=== PATIENT | female | born 1965 | race Caucasian/White ===

== ENCOUNTER 2019-06-23 09:30 | Outpatient (RCR) | payer BC, SELFPAY ==
[2019-06-02 09:26] VITALS: BP 149/87; PULSE 87; RESP 18; TEMP 36.2; BMI 20.5
--- NOTE | 2019-06-02 10:32 | PCM.WC.HP ---
(1) Chronic venous insufficiency Status: Chronic Current Visit: Yes Code(s): I87.2 - Venous insufficiency (chronic) (peripheral) (2) Venous stasis ulcer limited to breakdown of skin with varicose veins Status: Chronic Current Visit: Yes Qualifiers: Venous stasis ulcer site: ankle Laterality: right Qualified Code(s): I83.013 - Varicose veins of right lower extremity with ulcer of ankle; L97.311 - Non-pressure chronic ulcer of right ankle limited to breakdown of skin Code(s): I83.009 - Varicose veins of unspecified lower extremity with ulcer of unspecified site; L97.901 - Non-pressure chronic ulcer of unspecified part of unspecified lower leg limited to breakdown of skin (3) Venous hypertension, chronic, with ulcer Status: Chronic Current Visit: Yes Code(s): I87.319 - Chronic venous hypertension (idiopathic) with ulcer of unspecified lower extremity; L97.909 - Non-pressure chronic ulcer of unspecified part of unspecified lower leg with unspecified severity (4) Leg swelling Status: Chronic Current Visit: Yes Code(s): M79.89 - Other specified soft tissue disorders (5) Bilateral hand swelling Status: Chronic Current Visit: No Code(s): M79.89 - Other specified soft tissue disorders (6) Tobacco abuse Status: Chronic Current Visit: No Code(s): Z72.0 - Tobacco use (7) Tobacco abuse counseling Status: Chronic Current Visit: No Code(s): Z71.6 - Tobacco abuse counseling History of Present Illness Date of Service: 06/02/19 Chief Complaint: Ulceration near the right medial malleolus History of Wound: This is a 53-year-old female who presents with a small ulceration near the right medial malleolus. It occurred spontaneously approximately 3 months ago. Patient has treated it with a variety of topical preparations, including Neosporin ointment, silver cloth, silver gel, and Vaseline. She is seeing little improvement in the ulceration since it developed. She denies a history of thrombophlebitis. She has undergone no prior vein procedures in the past. She claims to sleep on a flat surface at night. She is very active. She indicates that she experiences swelling in her lower extremities and her hands, which is most notable in the mornings. She ambulates liberally, without any symptoms to suggest arterial insufficiency or intermittent claudication. Past Medical History Past Medical History: Chronic Problems Chronic venous insufficiency (Chronic) Venous stasis ulcer limited to breakdown of skin with varicose veins (Chronic) Venous hypertension, chronic, with ulcer (Chronic) Leg swelling (Chronic) Bilateral hand swelling (Chronic) Tobacco abuse (Chronic) Tobacco abuse counseling (Chronic) Past Medical History: The patient experienced an episode of shingles to the left side of her face approximately 1 year ago. There is a question of whether the patient may have Raynaud's disease, though she has not been formally diagnosed with this disease entity. She notices some blue discoloration of her digits and cold weather. The patient denies a history of thrombophlebitis, myocardial infarction, congestive heart failure, cerebrovascular accident, hypertension, diabetes mellitus, cancer, pulmonary disease, renal disease, hyperlipidemia, and thyroid disease. Surgical History: - - Patient has no history of significant surgical procedures. She is a G1, P1 Ab0 Allergies/Adverse Reactions: Allergies No Known Allergies Allergy (Verified 06/02/19 09:46) - Family History Paternal - - The patient's father is 88 years of age with a history of atrial fibrillation and abdominal aortic aneurysm. The patient's mother at the age of 90 from old age Social History: The patient is employed as a realtor. Lives: Spouse/ Significant Other Smoking Status: Current every day smoker - Patient smokes 4 packs of cigarettes per week Tobacco Use: Cigarettes Alcohol: Heavy - The patient drinks approximately 4 beers per day Drugs: None Review of Systems Constitutional: Denies: Chills, Fever, Weight Change Eyes: Denies: Pain, Vision Change HEENT: Denies: Difficulty Hearing, Difficulty Swallowing, Sinus Congestion Cardiovascular: Denies: Chest Pain, Palpitations Respiratory: Denies: Cough, Shortness of Breath Gastrointestinal: Denies: Diarrhea, Nausea, Vomiting Genitourinary: Denies: Dysuria, Hematuria Endocrine: Denies: Heat/ Cold Intolerance, Polydipsia, Polyuria Hematologic/ Lymphatic: Denies: Easy Bruising, Easy Bleeding - Physical Exam Vital Signs Temp Pulse Resp BP 97.1 F L 87 18 149/87 H 06/02/19 09:26 06/02/19 09:26 06/02/19 09:26 06/02/19 09:26 General: Alert, Oriented x3, Cooperative, No apparent distress, Well developed, Well nourished, - - The patient appears to be of relatively normal body habitus and weight HEENT: Atraumatic, PERRLA, EOMI, Normocephalic Oral: Moist Mucosa Neck: Supple, No JVD, Negative Carotid Bruits, Negative Hepatojugular Reflux, No Nodes, No Nuchal Rigidity, Trachea Midline Lungs: Clear to auscultation, Normal air movement, No rhonchi, No wheeze, No rales Cardiovascular: Regular rate, Regular Rhythm, Normal S1, Normal S2, No murmurs Abdomen: Soft, Non Tender, Non-Distended Extremities: No clubbing, No cyanosis, No Calf Tenderness, - - There is mild swelling noted in the fingers of the patient's hands. There is no swelling in the lower extremities. A very small ulceration is noted near the right medial malleolus. Dimensions are documented elsewhere. There is a small amount of bioburden. The ulceration is surrounded by mild erythema, which appears to represent maceration, likely due to recent topical preparations. Scattered reticular veins and small varicosities are noted in the lower extremities. Wound Measurements and Assessment WC - Nurse 1 - General Ulcer Measurement Start: 06/02/19 09:26 Freq: Status: Active Protocol: Activity Type Activity Date Activity User E-Sign Co-Sign Detail Recorded Client Recorded Date Recorded By Document 06/02/19 09:26 [email or web address] [id number] 06/02/19 09:40 SCOTTY 06/02/19 09:26 Wound Center Nurse 1 [Ulcer Assessment] 1-right medial ankle -Combined with other wound No -Current Size (cm) - Length 0.1 -Current Size (cm) - Width 0.1 -Current Size (cm) - Depth 0.1 -Total Square Cm 0.01 -Photo Taken Yes -Epithelialization Large 67-100% -Tunneling No -Undermining/Tunneling No -Circular Undermining No -Classification - Thickness Full Thickness without Exposed Support Structure -Exudate Amt Small -Exudate Type Serosanguineous -Wound Margin Flat & Intact -Granulation Amt Large (67-100%) -Granulation Quality Red -Slough/Fibrin No -Structure Exposed N/A -Texture (Cathryn-wound Skin Appearance) Assessed, Excoriation -Moisture (Cathryn-wound Skin Appearance Assessed,Dry/ ) Scaly -Color (Cathryn-wound Skin Appearance) Assessed -Temperature (Cathryn-wound Skin No Abnormality Appearance) (Pt Warm) -Tenderness on Palpation (Cathryn-wound No Skin Appearance) -Ulcer Cleansing Rinsed/ Irrigated with Saline -Foul Odor after Cleansing No -Anesthetic Used 4% Lidocaine Solution [Edema Assessment] -Lower Limb Edema Present Yes -Right Calf (cm) 35.5 -Right Ankle (cm) 22.6 -Left Calf (cm) 35.2 -Left Ankle (cm) 22.3 WC - Nurse 2 - General Ulcer CM Notes Start: 06/02/19 09:26 Freq: Status: Active Protocol: Activity Type Activity Date Activity User E-Sign Co-Sign Detail Recorded Client Recorded Date Recorded By Document 06/02/19 10:22 DV [id number] 06/02/19 10:25 DV 06/02/19 10:22 Wound Center Nurse 2 [Procedure/Treatment] 1-right medial ankle -Time 10:22 -Correct Patient Yes -Correct Side, Site, Position Yes -Correct Procedure Yes -Procedure Performed Yes -Type of Procedure Debridement -Clinical Debridement Subcutaneous -Post Debridement Size (cm) - Length 0.2 -Post Debridement Size (cm) - Width 0.2 -Post Debridement Size (cm) - Depth 0.1 -Total Square Cm 0.04 -Wound/Ulcer Outcome Not Healed -Ulcer Cleansing Rinsed/ Irrigated with Saline -Foul Odor after Cleansing No -Bioengineered Tissue No -Bleeding Controlled with Pressure -Offloading No -Treatment Response Procedure Tolerated Well [See Physician Procedure note for Specifics] Pain Scale: 0-10 Numeric [Pain] -Is Patient Pain Free? Yes Musculoskeletal: No Muscle Wasting Neurological: Cranial nerves II-XII grossly intact, Neuro grossly intact Psych/Mental Status: Normal Affect, Appropriate, Alert and oriented to time, place, person, mood and affect Debridement Note Post-Debridement Measurements/Treatment WC - Nurse 2 - General Ulcer CM Notes Start: 06/02/19 09:26 Freq: Status: Active Protocol: Activity Type Activity Date Activity User E-Sign Co-Sign Detail Recorded Client Recorded Date Recorded By Document 06/02/19 10:22 DV [id number] 06/02/19 10:25 DV 06/02/19 10:22 Wound Center Nurse 2 1-right medial ankle -Time 10:22 -Correct Patient Yes -Correct Side, Site, Position Yes -Correct Procedure Yes -Procedure Performed Yes -Type of Procedure Debridement -Clinical Debridement Subcutaneous -Post Debridement Size (cm) - Length 0.2 -Post Debridement Size (cm) - Width 0.2 -Post Debridement Size (cm) - Depth 0.1 -Total Square Cm 0.04 -Wound/Ulcer Outcome Not Healed -Ulcer Cleansing Rinsed/ Irrigated with Saline -Foul Odor after Cleansing No -Bioengineered Tissue No -Bleeding Controlled with Pressure -Offloading No -Treatment Response Procedure Tolerated Well Pain Scale: 0-10 Numeric Is Patient Pain Free? Yes Laterality: Right - Medial malleolus Type of Debridement: Excisional debridement Anesthesia Used: 5% Lidocaine Gel Depth: Down to and including healthy tissue, in the subcutaneous layer Percentage of wound debrided: 100 Instrument Used: - - 1 mm curette Tissue Removed: Bioburden Severity: Fat Layer Exposed Amount of bleeding with debridement: Mild Bleeding Controlled with: Compression and gauze Patient tolerated procedure well Assessment/Plan Active Problems Chronic venous insufficiency (Chronic) Venous stasis ulcer limited to breakdown of skin with varicose veins (Chronic) Venous hypertension, chronic, with ulcer (Chronic) Leg swelling (Chronic) Assessment: This is a 53-year-old female presents with an ulceration near the right medial malleolus, which has been present for approximately 3 months. It appears likely, based upon the patient's history, and the location of her ulceration, this is due to chronic venous disease. The patient otherwise appears relatively healthy, but is noted to have a tobacco habit, for which she has been advised to quit. Plan: Conservative treatment measures are to be implemented. These measures have been discussed with the patient thoroughly. She has been advised to elevate her lower extremities as much as possible. Elevation is to be to heart level, or higher. She is to continue sleeping on a flat surface at night. Prolonged idle sitting and standing has been discouraged. Activity has been encouraged. Compression is to be initiated by means of Tubigrip's, which will be applied to the right lower extremity on a daily basis. We are to obtain routine laboratory studies, including a CBC, conference of metabolic profile, serum pre-albumin, and sed rate. A venous duplex examination will also be performed. CESAR's will also be ordered to assess the patient's arterial status prior to implementing a higher degree of compression to the lower extremities. We are to use Promogran, apply topically to the ulceration on a daily basis. This will be accompanied by the use of the stasis pad. Patient will return in 1 week for reassessment. The patient is a smoker. Smoking has been discouraged. Patient has been advised of the adverse consequences related to tobacco use. Patient weighs 120 pounds. She stands 5 feet 4 inches tall. Her BMI is 20.5, which is normal. Influenza vaccine was not administered today.
[2019-06-02 12:30] LABS: Hematocrit 41.8 % (37-47); Mean Corp Hgb Conc 33.5 g/gl (32-36); Mean Corpuscular Hgb 31.5 pg (27.0-32.0); Mean Corpuscular Volume 94.1 fL (81-99); Mean Platelet Vol. 10.4 fl (6.2-12.0); Platelet Count 427 K/mm3 (150-450); RBC Distribution Width CV 13.6 % (11.6-14.6); RBC Distribution Width SD 46.5 fl (35.1-43.9); Red Blood Count 4.44 M/mm3 (4.2-5.4); White Blood Count 9.5 K/mm3 (4.4-11.0)
[2019-06-02 12:32] LABS: Erythrocyte Sedimentation Rate 10 mm/hr (0-30)
[2019-06-02 12:37] LABS: Scan Indicated on CBC? Y/N NO
[2019-06-02 12:59] LABS: ALB/GLOB Ratio 1.2 RATIO (0.9-2.4); AST(SGOT) 16 U/L (15-37); Alanine Aminotransfer ALT/SGPT 21 U/L (13-56); Albumin, Serum 4.1 g/dL (3.2-5.0); Alkaline Phosphatase 53 U/L (45-117); Anion Gap 8 (5-15); BUN 15 mg/dL (7-18); Calcium,Total 9.2 mg/dL (8.5-10.1); Chloride 107 mmol/L (98-107); Creatinine, Serum 0.75 mg/dL (0.55-1.02); EST Glomerular Filtration Rate 85 mL/min (>60); Est Glom Filt Rate - Afr Amer 103 mL/min (>60); Estimated Creatinine Clearance 73.68 ml/min; Globulin 3.4 g/dL (2.2-4.2); Glucose 104 mg/dL (74-106); Potassium 4.5 mmol/L (3.5-5.1); Prealbumin 25.9 mg/dL (20.0-40.0); Protein, Total 7.5 g/dL (6.4-8.2); Sodium Level 143 mmol/L (136-145)
[2019-06-09 09:03] VITALS: BP 132/85; PULSE 90; RESP 18; TEMP 36.6; BMI 20.5
--- NOTE | 2019-06-09 09:37 | PCM.WC.HP ---
(1) Chronic venous insufficiency Status: Chronic Current Visit: Yes Code(s): I87.2 - Venous insufficiency (chronic) (peripheral) (2) Venous stasis ulcer limited to breakdown of skin with varicose veins Status: Chronic Current Visit: Yes Qualifiers: Venous stasis ulcer site: ankle Laterality: right Qualified Code(s): I83.013 - Varicose veins of right lower extremity with ulcer of ankle; L97.311 - Non-pressure chronic ulcer of right ankle limited to breakdown of skin Code(s): I83.009 - Varicose veins of unspecified lower extremity with ulcer of unspecified site; L97.901 - Non-pressure chronic ulcer of unspecified part of unspecified lower leg limited to breakdown of skin (3) Venous hypertension, chronic, with ulcer Status: Chronic Current Visit: Yes Code(s): I87.319 - Chronic venous hypertension (idiopathic) with ulcer of unspecified lower extremity; L97.909 - Non-pressure chronic ulcer of unspecified part of unspecified lower leg with unspecified severity (4) Leg swelling Status: Chronic Current Visit: Yes Code(s): M79.89 - Other specified soft tissue disorders (5) Bilateral hand swelling Status: Chronic Current Visit: No Code(s): M79.89 - Other specified soft tissue disorders (6) Tobacco abuse Status: Chronic Current Visit: No Code(s): Z72.0 - Tobacco use (7) Tobacco abuse counseling Status: Chronic Current Visit: No Code(s): Z71.6 - Tobacco abuse counseling History of Present Illness Date of Service: 06/09/19 Chief Complaint: Ulceration near the right medial malleolus History of Wound: This is a 53-year-old female who presents with a small ulceration near the right medial malleolus. It occurred spontaneously approximately 3 months ago. Patient has treated it with a variety of topical preparations, including Neosporin ointment, silver cloth, silver gel, and Vaseline. She is seeing little improvement in the ulceration since it developed. She denies a history of thrombophlebitis. She has undergone no prior vein procedures in the past. She claims to sleep on a flat surface at night. She is very active. She indicates that she experiences swelling in her lower extremities and her hands, which is most notable in the mornings. She ambulates liberally, without any symptoms to suggest arterial insufficiency or intermittent claudication. Past Medical History Past Medical History: Chronic Problems Chronic venous insufficiency (Chronic) Venous stasis ulcer limited to breakdown of skin with varicose veins (Chronic) Venous hypertension, chronic, with ulcer (Chronic) Leg swelling (Chronic) Bilateral hand swelling (Chronic) Tobacco abuse (Chronic) Tobacco abuse counseling (Chronic) Surgical History: - - Patient has no history of significant surgical procedures. She is a G1, P1 Ab0 Allergies/Adverse Reactions: Allergies No Known Allergies Allergy (Verified 06/02/19 09:46) - Family History Paternal - - The patient's father is 88 years of age with a history of atrial fibrillation and abdominal aortic aneurysm. The patient's mother at the age of 90 from old age Lives: Spouse/ Significant Other Smoking Status: Current every day smoker - Patient smokes 4 packs of cigarettes per week Tobacco Use: Cigarettes Alcohol: Heavy - The patient drinks approximately 4 beers per day Drugs: None Review of Systems Constitutional: Denies: Chills, Fever, Weight Change Eyes: Denies: Pain, Vision Change HEENT: Denies: Difficulty Hearing, Difficulty Swallowing, Sinus Congestion Cardiovascular: Denies: Chest Pain, Palpitations Respiratory: Denies: Cough, Shortness of Breath Gastrointestinal: Denies: Diarrhea, Nausea, Vomiting Genitourinary: Denies: Dysuria, Hematuria Endocrine: Denies: Heat/ Cold Intolerance, Polydipsia, Polyuria Hematologic/ Lymphatic: Denies: Easy Bruising, Easy Bleeding - Physical Exam Vital Signs Temp Pulse Resp BP 97.8 F 90 18 132/85 H 06/09/19 09:03 06/09/19 09:03 06/09/19 09:03 06/09/19 09:03 General: Alert, Oriented x3, Cooperative, No apparent distress, Well developed, Well nourished HEENT: Atraumatic, PERRLA, EOMI, Normocephalic Oral: Moist Mucosa Neck: No JVD Lungs: Normal air movement Abdomen: Non-Distended Extremities: No clubbing, No cyanosis, No edema, No Calf Tenderness, - - The ulceration near the right medial malleolus appears nearly completely healed. Mild erythema persists, which appears to be inflammatory, rather than infectious. There is no significant swelling or edema in the right lower extremity. Wound Measurements and Assessment WC - Nurse 1 - General Ulcer Measurement Start: 06/02/19 09:26 Freq: Status: Active Protocol: Activity Type Activity Date Activity User E-Sign Co-Sign Detail Recorded Client Recorded Date Recorded By Document 06/09/19 09:03 MW [id number] 06/09/19 09:07 MW 06/09/19 09:03 Wound Center Nurse 1 [Ulcer Assessment] 1-right medial ankle -Combined with other wound No -Current Size (cm) - Length 0.1 -Current Size (cm) - Width 0.1 -Current Size (cm) - Depth 0.1 -Total Square Cm 0.01 -Photo Taken No -Epithelialization None Present -Tunneling No -Undermining/Tunneling No -Circular Undermining No -Exudate Amt None Present -Wound Margin Flat & Intact -Granulation Amt None Present (0 %) -Granulation Quality N/A -Slough/Fibrin Yes -Necrosis Amt Small (1-33%) -Necrotic Tissue Type Adherent Slough -Structure Exposed N/A -Texture (Cathryn-wound Skin Appearance) Assessed,Rash -Moisture (Cathryn-wound Skin Appearance No Abnormality, ) Assessed -Color (Cathryn-wound Skin Appearance) No Abnormality, Assessed -Temperature (Cathryn-wound Skin No Abnormality Appearance) (Pt Warm) -Tenderness on Palpation (Cathryn-wound Yes Skin Appearance) -Ulcer Cleansing Rinsed/ Irrigated with Saline -Foul Odor after Cleansing No -Anesthetic Used 5% Lidocaine Gel [Edema Assessment] -Lower Limb Edema Present No -Right Calf (cm) 35.5 -Right Ankle (cm) 22.0 WC - Nurse 2 - General Ulcer CM Notes Start: 06/02/19 09:26 Freq: Status: Active Protocol: Activity Type Activity Date Activity User E-Sign Co-Sign Detail Recorded Client Recorded Date Recorded By Document 06/09/19 09:27 DV [id number] 06/09/19 09:30 DV 06/09/19 09:27 Wound Center Nurse 2 [Procedure/Treatment] 1-right medial ankle -Time 09:29 -Correct Patient Yes -Correct Side, Site, Position Yes -Correct Procedure Yes -Procedure Performed Yes -Type of Procedure Debridement -Clinical Debridement Selective -Post Debridement Size (cm) - Length 0.1 -Post Debridement Size (cm) - Width 0.1 -Post Debridement Size (cm) - Depth 0.1 -Total Square Cm 0.01 -Wound/Ulcer Outcome Not Healed -Ulcer Cleansing Rinsed/ Irrigated with Saline -Foul Odor after Cleansing No -Bioengineered Tissue No -Bleeding Controlled with NA -Treatment Response Procedure Tolerated Well [See Physician Procedure note for Specifics] Pain Scale: 0-10 Numeric [Pain] -Is Patient Pain Free? Yes Musculoskeletal: No Muscle Wasting Neurological: Cranial nerves II-XII grossly intact, Neuro grossly intact Psych/Mental Status: Normal Affect, Appropriate, Alert and oriented to time, place, person, mood and affect Debridement Note Post-Debridement Measurements/Treatment WC - Nurse 2 - General Ulcer CM Notes Start: 06/02/19 09:26 Freq: Status: Active Protocol: Activity Type Activity Date Activity User E-Sign Co-Sign Detail Recorded Client Recorded Date Recorded By Document 06/02/19 10:22 DV [id number] 06/02/19 10:25 DV Document 06/09/19 09:27 DV [id number] 06/09/19 09:30 DV 06/02/19 06/09/19 10:22 09:27 Wound Center Nurse 2 1-right medial ankle -Time 10:22 09:29 -Correct Patient Yes Yes -Correct Side, Site, Position Yes Yes -Correct Procedure Yes Yes -Procedure Performed Yes Yes -Type of Procedure Debridement Debridement -Clinical Debridement Subcutaneous Selective -Post Debridement Size (cm) - Length 0.2 0.1 -Post Debridement Size (cm) - Width 0.2 0.1 -Post Debridement Size (cm) - Depth 0.1 0.1 -Total Square Cm 0.04 0.01 -Wound/Ulcer Outcome Not Healed Not Healed -Ulcer Cleansing Rinsed/ Rinsed/ Irrigated with Irrigated with Saline Saline -Foul Odor after Cleansing No No -Bioengineered Tissue No No -Bleeding Controlled with Pressure NA -Offloading No -Treatment Response Procedure Procedure Tolerated Well Tolerated Well Pain Scale: 0-10 Numeric Is Patient Pain Free? Yes Yes Laterality: Right - Medial malleolus Type of Debridement: Selective debridement Anesthesia Used: 5% Lidocaine Gel Depth: Down to and including healthy tissue, in the subcutaneous layer Percentage of wound debrided: 100 Instrument Used: 5mm curette Tissue Removed: Sloughing epidermis Severity: Limited To Skin Breakdown Amount of bleeding with debridement: None Patient tolerated procedure well Assessment/Plan Active Problems Chronic venous insufficiency (Chronic) Venous stasis ulcer limited to breakdown of skin with varicose veins (Chronic) Venous hypertension, chronic, with ulcer (Chronic) Leg swelling (Chronic) Assessment: This is a 53-year-old female presents with an ulceration near the right medial malleolus, which has been present for approximately 3 months. It appears likely, based upon the patient's history, and the location of her ulceration, this is due to chronic venous disease. The patient otherwise appears relatively healthy, but is noted to have a tobacco habit, for which she has been advised to quit. The patient has undergone a battery of diagnostic laboratory tests. Results have been reviewed, and are as follows: Sodium 143, potassium 4.5, chloride 107, BUN 15, creatinine 0.75, glucose 104, calcium 9.2, AST 16, ALT 21, alkaline phosphatase 53, total protein 7.5, albumin 4.1, serum prealbumin 25.9, white blood count 9.5, hemoglobin 14.0, hematocrit 41.8, platelets 427,000. Plan: Conservative treatment measures are to be continued. These measures have been discussed with the patient thoroughly. She has been advised to elevate her lower extremities as much as possible. Elevation is to be to heart level, or higher. She is to continue sleeping on a flat surface at night. Prolonged idle sitting and standing has been discouraged. Activity has been encouraged. Compression is to be continued by means of Tubigrip's, which will be applied to the right lower extremity on a daily basis. A venous duplex examination will also be performed. CESAR's will also be ordered to assess the patient's arterial status prior to implementing a higher degree of compression to the lower extremities. The patient's vascular studies are to be performed next week, prior to her next follow-up visit. We are to use collagen hydrogel topically, which will be applied sparingly on a daily basis. This will be accompanied by the use of the stasis pad. Patient will return in 1 week for reassessment. The patient is a smoker. Smoking has been discouraged. Patient has been advised of the adverse consequences related to tobacco use. Patient weighs 120 pounds. She stands 5 feet 4 inches tall. Her BMI is 20.5, which is normal. Influenza vaccine was not administered today.
--- NOTE | 2019-06-15 08:58 | ART_ITS ---
Reason For Study: PVD Procedure A bilateral lower extremity continuous wave Doppler with analog waveform analysis,segmental pressures,and ankle brachial indexes without exercise. Left Segmental Pressures Left brachial= 128mmHg. Left posterior tibial artery = 155mmHg. Left dorsalis pedis artery = 148mmHg. Left digit = 117 mmHg. The left dorsalis pedis waveforms are triphasic. The left posterior tibial artery waveforms are triphasic. Right Segmental Pressures Right brachial= 138mmHg. Right posterior tibial artery = 150mmHg. Right dorsalis pedis artery = 153mmHg. Right digit = 114 mmHg. The right dorsalis pedis waveforms are triphasic. The right posterior tibial artery waveforms are triphasic. Indices The right ankle brachial index by the dorsalis pedis is 1.11. The right ankle brachial index by the posterior tibial artery is 1.09. The right digital-brachial index is 0.83. The left ankle brachial index by the dorsalis pedis is 1.07. The left ankle brachial index by the posterior tibial artery is 1.12. The left digital-brachial index is 0.85. Interpretation Summary Triphasic Doppler waveforms are noted at ankle level bilaterally. Pulse-volume waveform amplitudes appear satisfactory at all levels bilaterally. Resting ankle-brachial indices are normal bilaterally. Digital-brachial indices are bilaterally normal. There is no evidence of significant arterial occlusive disease in the lower extremities bilaterally. Ordering Physician: Bruce Greenberg Referring Physician: Ghazala Wong Performed By: Augusta Joseph RVT
--- NOTE | 2019-06-15 08:58 | VDLE_ITS ---
Reason For Study: Pain RIGHT LEFT CFV is compressible, spontaneous, phasic, CFV is compressible, spontaneous, phasic, competent and demonstrates normal competent, and demonstrates normal augmentation. augmentation. FV is compressible, spontaneous, phasic, FV is compressible, spontaneous, phasic, competent and demonstrates normal competent and demonstrates normal augmentation. augmentation. POP V is compressible, spontaneous, phasic, POP V is compressible, spontaneous, phasic, competent and demonstrates normal competent and demonstrates normal augmentation. augmentation. T/P Trunk is compressible. T/P Trunk is compressible. PTV is compressible. PTV is compressible. RT PerV is compressible. LT PerV is compressible. SFJ is INCOMPETENT and measures 0.77 x 0.93 SFJ is INCOMEPTENT and measures 0.47 x 0.58 cm. cm. GSV is INCOMPETENT throughout for greater GSV above knee is competent and measures in than 0.5 seconds and measures in proximal prox thigh 0.24 x 0.27 cm. thigh 0.53 x 0.64 cm and at knee 0.53 x 0.60 GSV below knee is INCOMEPTENT for greater cm. than 0.5 seconds and measures 0.24 x 0.28 cm. SSV is competent and measures 0.11 x 0.12 cm. SSV is INCOMEPTENT for greater than 0.5 Procedure seconds and measures 0.20 x 0.23 cm. Exam performed in department. Patient was scanned in reverse Trendelenburg position during reflux assessment. A preliminary report was called and/or faxed to . Interpretation Summary Deep veins of the lower extremities are bilaterally patent and compressible segmentally. There is no evidence of deep vein thrombosis on either side. Valvular competence appears intact within the proximal deep venous systems bilaterally. The greater saphenous veins appear bilaterally patent and compressible segmentally. Sapheno-femoral junctions are bilaterally incompetent . The right greater saphenous vein appears segmentally incompetent. The left greater saphenous vein appears competent above the knee. The left greater saphenous vein appears incompetent below the knee. The right small saphenous vein is patent and competent. The left small saphenous vein is patent and incompetent. Ordering Physician: Bruce Greenberg Referring Physician: Ghazala Wong Performed By: Augusta Joseph RVT
[2019-06-16 09:07] VITALS: BP 133/90; PULSE 89; RESP 18; TEMP 37.3; BMI 20.5
--- NOTE | 2019-06-16 10:01 | HP.PCM_ITS ---
(1) Chronic venous insufficiency Status: Chronic Current Visit: Yes Code(s): I87.2 - Venous insufficiency (chronic) (peripheral) (2) Venous stasis ulcer limited to breakdown of skin with varicose veins Status: Chronic Current Visit: Yes Qualifiers: Venous stasis ulcer site: ankle Laterality: right Qualified Code(s): I83.013 - Varicose veins of right lower extremity with ulcer of ankle; L97.311 - Non-pressure chronic ulcer of right ankle limited to breakdown of skin Code(s): I83.009 - Varicose veins of unspecified lower extremity with ulcer of unspecified site; L97.901 - Non-pressure chronic ulcer of unspecified part of unspecified lower leg limited to breakdown of skin (3) Venous hypertension, chronic, with ulcer Status: Chronic Current Visit: Yes Code(s): I87.319 - Chronic venous hypertension (idiopathic) with ulcer of unspecified lower extremity; L97.909 - Non-pressure chronic ulcer of unspecified part of unspecified lower leg with unspecified severity (4) Leg swelling Status: Chronic Current Visit: Yes Code(s): M79.89 - Other specified soft tissue disorders (5) Bilateral hand swelling Status: Chronic Current Visit: No Code(s): M79.89 - Other specified soft tissue disorders (6) Tobacco abuse Status: Chronic Current Visit: Yes Code(s): Z72.0 - Tobacco use (7) Tobacco abuse counseling Status: Chronic Current Visit: Yes Code(s): Z71.6 - Tobacco abuse counseling History of Present Illness Date of Service: 06/16/19 Chief Complaint: Ulceration near the right medial malleolus History of Wound: This is a 53-year-old female who presents with a small ulceration near the right medial malleolus. It occurred spontaneously approximately 3 months ago. Patient has treated it with a variety of topical preparations, including Neosporin ointment, silver cloth, silver gel, and Vaseline. She is seeing little improvement in the ulceration since it developed. She denies a history of thrombophlebitis. She has undergone no prior vein procedures in the past. She claims to sleep on a flat surface at night. She is very active. She indicates that she experiences swelling in her lower extremities and her hands, which is most notable in the mornings. She ambulates liberally, without any symptoms to suggest arterial insufficiency or intermittent claudication. Past Medical History Past Medical History: Chronic Problems Chronic venous insufficiency (Chronic) Venous stasis ulcer limited to breakdown of skin with varicose veins (Chronic) Venous hypertension, chronic, with ulcer (Chronic) Leg swelling (Chronic) Bilateral hand swelling (Chronic) Tobacco abuse (Chronic) Tobacco abuse counseling (Chronic) Surgical History: - - Patient has no history of significant surgical procedures. She is a G1, P1 Ab0 Allergies/Adverse Reactions: Allergies No Known Allergies Allergy (Verified 06/02/19 09:46) - Family History Paternal - - The patient's father is 88 years of age with a history of atrial fibrillation and abdominal aortic aneurysm. The patient's mother at the age of 90 from old age Lives: Spouse/ Significant Other Smoking Status: Current every day smoker - Patient smokes 4 packs of cigarettes per week Tobacco Use: Cigarettes Alcohol: Heavy - The patient drinks approximately 4 beers per day Drugs: None Review of Systems Constitutional: Denies: Chills, Fever, Weight Change Eyes: Denies: Pain, Vision Change HEENT: Denies: Difficulty Hearing, Difficulty Swallowing, Sinus Congestion Cardiovascular: Denies: Chest Pain, Palpitations Respiratory: Denies: Cough, Shortness of Breath Gastrointestinal: Denies: Diarrhea, Nausea, Vomiting Genitourinary: Denies: Dysuria, Hematuria Endocrine: Denies: Heat/ Cold Intolerance, Polydipsia, Polyuria Hematologic/ Lymphatic: Denies: Easy Bruising, Easy Bleeding - Physical Exam Vital Signs Temp Pulse Resp BP 99.1 F 89 18 133/90 H 06/16/19 09:07 06/16/19 09:07 06/16/19 09:07 06/16/19 09:07 General: Alert, Oriented x3, Cooperative, No apparent distress, Well developed, Well nourished HEENT: Atraumatic, PERRLA, EOMI, Normocephalic Oral: Moist Mucosa Neck: No JVD Lungs: Normal air movement Abdomen: Non-Distended Extremities: No clubbing, No cyanosis, No edema, No Calf Tenderness, - - There is no swelling or edema in the patient's lower extremities. The ulceration of the right medial malleolus continues to decrease in size. It is now nearly totally healed. There is no sign of infection or cellulitis. Dimensions are documented elsewhere. Skin: No rashes Wound Measurements and Assessment WC - Nurse 1 - General Ulcer Measurement Start: 06/02/19 09:26 Freq: Status: Active Protocol: Activity Type Activity Date Activity User E-Sign Co-Sign Detail Recorded Client Recorded Date Recorded By Document 06/16/19 09:07 DL [id number] 06/16/19 09:11 DL 06/16/19 09:07 Wound Center Nurse 1 [Ulcer Assessment] 1-right medial ankle -Current Size (cm) - Length 0.2 -Current Size (cm) - Width 0.2 -Current Size (cm) - Depth 0.1 -Total Square Cm 0.04 -Photo Taken No -Exudate Amt None Present -Wound Margin Flat & Intact -Granulation Amt Small (1-33%) -Granulation Quality [place] -Necrosis Amt None Present (0 %) -Structure Exposed N/A -Texture (Cathryn-wound Skin Appearance) Excoriation, Scarring -Color (Cathryn-wound Skin Appearance) Rubor -Temperature (Cathryn-wound Skin No Abnormality Appearance) (Pt Warm) -Ulcer Cleansing Rinsed/ Irrigated with Saline -Foul Odor after Cleansing No [Edema Assessment] -Right Calf (cm) 33.3 -Right Ankle (cm) 20.8 WC - Nurse 2 - General Ulcer CM Notes Start: 06/02/19 09:26 Freq: Status: Active Protocol: Activity Type Activity Date Activity User E-Sign Co-Sign Detail Recorded Client Recorded Date Recorded By Document 06/16/19 09:44 DV [id number] 06/16/19 09:55 DV 06/16/19 09:44 Wound Center Nurse 2 [Procedure/Treatment] 1-right medial ankle -Time 09:46 -Correct Patient Yes -Correct Side, Site, Position Yes -Correct Procedure Yes -Procedure Performed Yes -Type of Procedure Debridement -Clinical Debridement Subcutaneous -Post Debridement Size (cm) - Length 1.0 -Post Debridement Size (cm) - Width 0.5 -Post Debridement Size (cm) - Depth 0.1 -Total Square Cm 0.50 -Wound/Ulcer Outcome Not Healed -Ulcer Cleansing Rinsed/ Irrigated with Saline -Foul Odor after Cleansing No -Bioengineered Tissue No -Bleeding Controlled with Pressure -Offloading Yes -Treatment Response Procedure Tolerated Well [See Physician Procedure note for Specifics] Pain Scale: 0-10 Numeric [Pain] -Is Patient Pain Free? Yes Neurological: Cranial nerves II-XII grossly intact, Neuro grossly intact Psych/Mental Status: Normal Affect, Appropriate, Alert and oriented to time, place, person, mood and affect Debridement Note Post-Debridement Measurements/Treatment WC - Nurse 2 - General Ulcer CM Notes Start: 06/02/19 09:26 Freq: Status: Active Protocol: Activity Type Activity Date Activity User E-Sign Co-Sign Detail Recorded Client Recorded Date Recorded By Document 06/02/19 10:22 DV [id number] 06/02/19 10:25 DV Document 06/09/19 09:27 DV [id number] 06/09/19 09:30 DV Document 06/16/19 09:44 DV [id number] 06/16/19 09:55 DV 06/02/19 06/09/19 06/16/19 10:22 09:27 09:44 Wound Center Nurse 2 1-right medial ankle -Time 10:22 09:29 09:46 -Correct Patient Yes Yes Yes -Correct Side, Site, Position Yes Yes Yes -Correct Procedure Yes Yes Yes -Procedure Performed Yes Yes Yes -Type of Procedure Debridement Debridement Debridement -Clinical Debridement Subcutaneous Selective Subcutaneous -Post Debridement Size (cm) - Length 0.2 0.1 1.0 -Post Debridement Size (cm) - Width 0.2 0.1 0.5 -Post Debridement Size (cm) - Depth 0.1 0.1 0.1 -Total Square Cm 0.04 0.01 0.50 -Wound/Ulcer Outcome Not Healed Not Healed Not Healed -Ulcer Cleansing Rinsed/ Rinsed/ Rinsed/ Irrigated with Irrigated with Irrigated with Saline Saline Saline -Foul Odor after Cleansing No No No -Bioengineered Tissue No No No -Bleeding Controlled with Pressure NA Pressure -Offloading No Yes -Treatment Response Procedure Procedure Procedure Tolerated Well Tolerated Well Tolerated Well Pain Scale: 0-10 Numeric Is Patient Pain Free? Yes Yes Yes Laterality: Right - Medial malleolus Type of Debridement: Excisional debridement Anesthesia Used: 5% Lidocaine Gel Depth: Down to and including healthy tissue, in the subcutaneous layer Percentage of wound debrided: 100 Instrument Used: 3mm curette Tissue Removed: Bioburden and nonviable tissue Severity: Fat Layer Exposed Amount of bleeding with debridement: Mild Bleeding Controlled with: Compression and gauze Patient tolerated procedure well Assessment/Plan Active Problems Chronic venous insufficiency (Chronic) Venous stasis ulcer limited to breakdown of skin with varicose veins (Chronic) Venous hypertension, chronic, with ulcer (Chronic) Leg swelling (Chronic) Tobacco abuse (Chronic) Tobacco abuse counseling (Chronic) Assessment: This is a 53-year-old female presents with an ulceration near the right medial malleolus, which had been present for approximately 3 months. It appears likely, based upon the patient's history, and the location of her ulceration, this is due to chronic venous disease. The patient otherwise appears relatively healthy, but is noted to have a tobacco habit, for which she has been advised to quit. The patient has undergone a battery of diagnostic laboratory tests. Results have been reviewed, and are as follows: Sodium 143, potassium 4.5, chloride 107, BUN 15, creatinine 0.75, glucose 104, calcium 9.2, AST 16, ALT 21, alkaline phosphatase 53, total protein 7.5, albumin 4.1, serum prealbumin 25.9, white blood count 9.5, hemoglobin 14.0, hematocrit 41.8, platelets 427,000. A noninvasive lower extremity arterial study was performed yesterday, revealing no evidence of arterial occlusive disease in the lower extremities. 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 Plan: Conservative treatment measures are to be continued. These measures have been discussed with the patient thoroughly. She has been advised to elevate her lower extremities as much as possible. Elevation is to be to heart level, or higher. She is to continue sleeping on a flat surface at night. Prolonged idle sitting and standing has been discouraged. Activity has been encouraged. Compression is to be continued by means of Tubigrip's, which will be applied to the right lower extremity on a daily basis. However, the patient has been provided a prescription for knee-high graduated compression stockings of 20 to 30 mmHg compression. She is to obtain these without delay, and begin wearing these on a daily basis, from morning until bedtime. Her weight appears to be optimal. She is to avoid idle sitting and standing. We are to use collagen hydrogel topically, which will be applied sparingly on a daily basis. This will be accompanied by the use of the stasis pad. We have also discussed the possible benefits of endovenous ablation of the right great saphenous vein, which is seen to be incompetent, and the likely cause of her right lower extremity venous ulceration. Patient will return in 1 week for reassessment. The patient is a smoker. Smoking has been discouraged. Patient has been advised of the adverse consequences related to tobacco use. Patient weighs 120 pounds. She stands 5 feet 4 inches tall. Her BMI is 20.5, which is normal. Influenza vaccine was not administered today.
[2019-06-23 09:37] VITALS: BP 149/95; PULSE 91; RESP 18; TEMP 36.4; BMI 20.5
--- NOTE | 2019-06-23 10:35 | HP.PCM_ITS ---
(1) Chronic venous insufficiency Status: Chronic Current Visit: Yes Code(s): I87.2 - Venous insufficiency (chronic) (peripheral) (2) Venous stasis ulcer limited to breakdown of skin with varicose veins Status: Chronic Current Visit: Yes Qualifiers: Venous stasis ulcer site: ankle Laterality: right Qualified Code(s): I83.013 - Varicose veins of right lower extremity with ulcer of ankle; L97.311 - Non-pressure chronic ulcer of right ankle limited to breakdown of skin Code(s): I83.009 - Varicose veins of unspecified lower extremity with ulcer of unspecified site; L97.901 - Non-pressure chronic ulcer of unspecified part of unspecified lower leg limited to breakdown of skin (3) Venous hypertension, chronic, with ulcer Status: Chronic Current Visit: Yes Code(s): I87.319 - Chronic venous hypertension (idiopathic) with ulcer of unspecified lower extremity; L97.909 - Non-pressure chronic ulcer of unspecified part of unspecified lower leg with unspecified severity (4) Leg swelling Status: Chronic Current Visit: Yes Code(s): M79.89 - Other specified soft tissue disorders (5) Bilateral hand swelling Status: Chronic Current Visit: No Code(s): M79.89 - Other specified soft tissue disorders (6) Tobacco abuse Status: Chronic Current Visit: Yes Code(s): Z72.0 - Tobacco use (7) Tobacco abuse counseling Status: Chronic Current Visit: Yes Code(s): Z71.6 - Tobacco abuse counseling History of Present Illness Date of Service: 06/23/19 Chief Complaint: Ulceration near the right medial malleolus History of Wound: This is a 53-year-old female who presents with a small ulceration near the right medial malleolus. It occurred spontaneously approximately 3 months ago. Patient has treated it with a variety of topical preparations, including Neosporin ointment, silver cloth, silver gel, and Vaseline. She is seeing little improvement in the ulceration since it developed. She denies a history of thrombophlebitis. She has undergone no prior vein procedures in the past. She claims to sleep on a flat surface at night. She is very active. She indicates that she experiences swelling in her lower extremities and her hands, which is most notable in the mornings. She ambulates liberally, without any symptoms to suggest arterial insufficiency or intermittent claudication. Past Medical History Past Medical History: Chronic Problems Chronic venous insufficiency (Chronic) Venous stasis ulcer limited to breakdown of skin with varicose veins (Chronic) Venous hypertension, chronic, with ulcer (Chronic) Leg swelling (Chronic) Bilateral hand swelling (Chronic) Tobacco abuse (Chronic) Tobacco abuse counseling (Chronic) Surgical History: - - Patient has no history of significant surgical procedures. She is a G1, P1 Ab0 Allergies/Adverse Reactions: Allergies No Known Allergies Allergy (Verified 06/02/19 09:46) - Family History Paternal - - The patient's father is 88 years of age with a history of atrial fibrillation and abdominal aortic aneurysm. The patient's mother at the age of 90 from old age Lives: Spouse/ Significant Other Smoking Status: Current every day smoker - Patient smokes 4 packs of cigarettes per week Tobacco Use: Cigarettes Alcohol: Heavy - The patient drinks approximately 4 beers per day Drugs: None Review of Systems Constitutional: Denies: Chills, Fever, Weight Change Eyes: Denies: Pain, Vision Change HEENT: Denies: Difficulty Hearing, Difficulty Swallowing, Sinus Congestion Cardiovascular: Denies: Chest Pain, Palpitations Respiratory: Denies: Cough, Shortness of Breath Gastrointestinal: Denies: Diarrhea, Nausea, Vomiting Genitourinary: Denies: Dysuria, Hematuria Endocrine: Denies: Heat/ Cold Intolerance, Polydipsia, Polyuria Hematologic/ Lymphatic: Denies: Easy Bruising, Easy Bleeding - Physical Exam Vital Signs Temp Pulse Resp BP 97.5 F L 91 18 149/95 H 06/23/19 09:37 06/23/19 09:37 06/23/19 09:37 06/23/19 09:37 General: Alert, Oriented x3, Cooperative, No apparent distress, Well developed, Well nourished HEENT: Atraumatic, PERRLA, EOMI, Normocephalic Oral: Moist Mucosa Neck: No JVD Lungs: Normal air movement Abdomen: Non-Distended Extremities: No clubbing, No cyanosis, No edema, No Calf Tenderness, - - There is no significant swelling or edema in the patient's lower extremities. The ulceration near the right medial malleolus is now completely healed and epithelialized. Skin: No rashes, No breakdown Wound Measurements and Assessment WC - Nurse 1 - General Ulcer Measurement Start: 06/02/19 09:26 Freq: Status: Active Protocol: Activity Type Activity Date Activity User E-Sign Co-Sign Detail Recorded Client Recorded Date Recorded By Document 06/23/19 09:37 RB [id number] 06/23/19 09:42 RB 06/23/19 09:37 Wound Center Nurse 1 [Ulcer Assessment] 1-right medial ankle -Combined with other wound No -Current Size (cm) - Length 0.1 -Current Size (cm) - Width 0.1 -Current Size (cm) - Depth 0.1 -Total Square Cm 0.01 -Photo Taken No -Tunneling No -Undermining/Tunneling No -Circular Undermining No -Exudate Amt None Present -Wound Margin Distinct, Outline Attached -Granulation Amt Medium (34-66%) -Granulation Quality [place] -Slough/Fibrin Yes -Necrosis Amt Small (1-33%) -Necrotic Tissue Type Adherent Slough -Structure Exposed N/A -Texture (Cathryn-wound Skin Appearance) Assessed -Moisture (Cathryn-wound Skin Appearance Assessed ) -Color (Cathryn-wound Skin Appearance) Assessed -Temperature (Cathryn-wound Skin No Abnormality Appearance) (Pt Warm) -Tenderness on Palpation (Cathryn-wound No Skin Appearance) -Ulcer Cleansing Rinsed/ Irrigated with Saline -Foul Odor after Cleansing No -Anesthetic Used 4% Lidocaine Solution [Edema Assessment] -Lower Limb Edema Present Yes -Right Calf (cm) 35.5 -Right Ankle (cm) 21.5 WC - Nurse 2 - General Ulcer CM Notes Start: 06/02/19 09:26 Freq: Status: Active Protocol: Activity Type Activity Date Activity User E-Sign Co-Sign Detail Recorded Client Recorded Date Recorded By Document 06/23/19 10:17 DV [id number] 06/23/19 10:22 DV 06/23/19 10:17 Wound Center Nurse 2 [Procedure/Treatment] 1-right medial ankle -Time 10:19 -Correct Patient Yes -Correct Side, Site, Position Yes -Correct Procedure No -Procedure Performed No -Post Debridement Size (cm) - Length 0 -Post Debridement Size (cm) - Width 0 -Post Debridement Size (cm) - Depth 0 -Total Square Cm 0 -Wound/Ulcer Outcome Healed- Epithelialized [See Physician Procedure note for Specifics] Pain Scale: 0-10 Numeric [Pain] -Is Patient Pain Free? Yes Musculoskeletal: No Muscle Wasting Neurological: Cranial nerves II-XII grossly intact, Neuro grossly intact Psych/Mental Status: Normal Affect, Appropriate, Alert and oriented to time, place, person, mood and affect Debridement Note Post-Debridement Measurements/Treatment WC - Nurse 2 - General Ulcer CM Notes Start: 06/02/19 09:26 Freq: Status: Active Protocol: Activity Type Activity Date Activity User E-Sign Co-Sign Detail Recorded Client Recorded Date Recorded By Document 06/02/19 10:22 DV [id number] 06/02/19 10:25 DV Document 06/09/19 09:27 DV [id number] 06/09/19 09:30 DV Document 06/16/19 09:44 DV [id number] 06/16/19 09:55 DV Document 06/23/19 10:17 DV [id number] 06/23/19 10:22 DV 06/02/19 06/09/19 06/16/19 10:22 09:27 09:44 Wound Center Nurse 2 1-right medial ankle -Time 10:22 09:29 09:46 -Correct Patient Yes Yes Yes -Correct Side, Site, Position Yes Yes Yes -Correct Procedure Yes Yes Yes -Procedure Performed Yes Yes Yes -Type of Procedure Debridement Debridement Debridement -Clinical Debridement Subcutaneous Selective Subcutaneous -Post Debridement Size (cm) - Length 0.2 0.1 1.0 -Post Debridement Size (cm) - Width 0.2 0.1 0.5 -Post Debridement Size (cm) - Depth 0.1 0.1 0.1 -Total Square Cm 0.04 0.01 0.50 -Wound/Ulcer Outcome Not Healed Not Healed Not Healed -Ulcer Cleansing Rinsed/ Rinsed/ Rinsed/ Irrigated with Irrigated with Irrigated with Saline Saline Saline -Foul Odor after Cleansing No No No -Bioengineered Tissue No No No -Bleeding Controlled with Pressure NA Pressure -Offloading No Yes -Treatment Response Procedure Procedure Procedure Tolerated Well Tolerated Well Tolerated Well Pain Scale: 0-10 Numeric Is Patient Pain Free? Yes Yes Yes 06/23/19 10:17 Wound Center Nurse 2 1-right medial ankle -Time 10:19 -Correct Patient Yes -Correct Side, Site, Position Yes -Correct Procedure No -Procedure Performed No -Type of Procedure -Clinical Debridement -Post Debridement Size (cm) - Length 0 -Post Debridement Size (cm) - Width 0 -Post Debridement Size (cm) - Depth 0 -Total Square Cm 0 -Wound/Ulcer Outcome Healed- Epithelialized -Ulcer Cleansing -Foul Odor after Cleansing -Bioengineered Tissue -Bleeding Controlled with -Offloading -Treatment Response Pain Scale: 0-10 Numeric Is Patient Pain Free? Yes No debridement was completed today Assessment/Plan Active Problems Chronic venous insufficiency (Chronic) Venous stasis ulcer limited to breakdown of skin with varicose veins (Chronic) Venous hypertension, chronic, with ulcer (Chronic) Leg swelling (Chronic) Tobacco abuse (Chronic) Tobacco abuse counseling (Chronic) Assessment: This is a 53-year-old female presented with an ulceration near the right medial malleolus, which had been present for approximately 3 months. It appears likely, based upon the patient's history, and the location of her ulceration, this is due to chronic venous disease. The patient otherwise appears relatively healthy, but is noted to have a tobacco habit, for which she has been advised to quit. The patient has undergone a battery of diagnostic laboratory tests. Results have been reviewed, and are as follows: Sodium 143, potassium 4.5, chloride 107, BUN 15, creatinine 0.75, glucose 104, calcium 9.2, AST 16, ALT 21, alkaline phosphatase 53, total protein 7.5, albumin 4.1, serum prealbumin 25.9, white blood count 9.5, hemoglobin 14.0, hematocrit 41.8, platelets 427,000. A noninvasive lower extremity arterial study was performed yesterday, revealing no evidence of arterial occlusive disease in the lower extremities. 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 Plan: Conservative treatment measures are to be continued. These measures have been discussed with the patient thoroughly. She has been advised to elevate her lower extremities as much as possible. Elevation is to be to heart level, or higher. She is to continue sleeping on a flat surface at night. Prolonged idle sitting and standing has been discouraged. Activity has been encouraged. Compression is to be continued by means of Tubigrip's, which will be applied to the right lower extremity on a daily basis. However, the patient has been provided a prescription for knee-high graduated compression stockings of 20 to 30 mmHg compression. The graduated compression stockings have been ordered, and the patient is expected to obtain these within the next day or 2. She will begin wearing these on a daily basis. Her weight appears to be optimal. She is to avoid idle sitting and standing. She is to apply a dry gauze topically to the healed ulcer site, and we will reevaluate her in 2 weeks to assure that she is doing well, and that her ulceration remains completely healed. We have once again discussed the possible benefits of endovenous ablation of the right great saphenous vein, which is seen to be incompetent, and the likely cause of her right lower extremity venous ulceration. We have also discussed VenaSeal as a possible option. The indications and risks and the long-term benefits of endovenous ablation of the right great saphenous vein have been discussed with the patient thoroughly. Patient will return in 2 weeks for reassessment. The patient is a smoker. Smoking has been discouraged. Patient has been advised of the adverse consequences related to tobacco use. Patient weighs 120 pounds. She stands 5 feet 4 inches tall. Her BMI is 20.5, which is normal. Influenza vaccine was not administered today.
== END 2019-07-01 23:59 ==
LOC: WC 09:30
PROVIDERS: Family Provider Family Medicine; PCP Family Medicine; Visit Provider Surgery
DX: I83.013 Varicose veins of right lower extremity with ulcer of ankle (principal); L97.311 Non-pressure chronic ulcer of right ankle limited to breakdown of skin; F17.210 Nicotine dependence, cigarettes, uncomplicated
CPT/HCPCS: 11042; 80053; 84134; 85027; 85652; 93923; 93970; 97597; 99204; 99213; G0463

== ENCOUNTER 2019-07-07 08:39 | Outpatient (RCR) | payer BC, SELFPAY ==
[2019-07-02 01:06] VITALS: BP 149/95; PULSE 91; RESP 18; TEMP 36.4
[2019-07-07 09:06] VITALS: BP 147/69; PULSE 87; RESP 16; TEMP 36.8; BMI 20.5
--- NOTE | 2019-07-07 10:02 | HP.PCM_ITS ---
(1) Chronic venous insufficiency Status: Chronic Current Visit: Yes Code(s): I87.2 - Venous insufficiency (chronic) (peripheral) (2) Venous stasis ulcer limited to breakdown of skin with varicose veins Status: Chronic Current Visit: Yes Qualifiers: Venous stasis ulcer site: ankle Laterality: right Qualified Code(s): I83.013 - Varicose veins of right lower extremity with ulcer of ankle; L97.311 - Non-pressure chronic ulcer of right ankle limited to breakdown of skin Code(s): I83.009 - Varicose veins of unspecified lower extremity with ulcer of unspecified site; L97.901 - Non-pressure chronic ulcer of unspecified part of unspecified lower leg limited to breakdown of skin (3) Venous hypertension, chronic, with ulcer Status: Chronic Current Visit: Yes Code(s): I87.319 - Chronic venous hypertension (idiopathic) with ulcer of unspecified lower extremity; L97.909 - Non-pressure chronic ulcer of unspecified part of unspecified lower leg with unspecified severity (4) Leg swelling Status: Chronic Current Visit: Yes Code(s): M79.89 - Other specified soft tissue disorders (5) Bilateral hand swelling Status: Chronic Current Visit: No Code(s): M79.89 - Other specified soft tissue disorders (6) Tobacco abuse Status: Chronic Current Visit: Yes Code(s): Z72.0 - Tobacco use (7) Tobacco abuse counseling Status: Chronic Current Visit: Yes Code(s): Z71.6 - Tobacco abuse counseling History of Present Illness Date of Service: 07/07/19 Chief Complaint: Ulceration near the right medial malleolus History of Wound: This is a 53-year-old female who presents with a small ulceration near the right medial malleolus. It occurred spontaneously approximately 3 months ago. Patient has treated it with a variety of topical preparations, including Neosporin ointment, silver cloth, silver gel, and Vaseline. She is seeing little improvement in the ulceration since it developed. She denies a history of thrombophlebitis. She has undergone no prior vein procedures in the past. She claims to sleep on a flat surface at night. She is very active. She indicates that she experiences swelling in her lower extremities and her hands, which is most notable in the mornings. She ambulates liberally, without any symptoms to suggest arterial insufficiency or intermittent claudication. Past Medical History Past Medical History: Chronic Problems Chronic venous insufficiency (Chronic) Venous stasis ulcer limited to breakdown of skin with varicose veins (Chronic) Venous hypertension, chronic, with ulcer (Chronic) Leg swelling (Chronic) Bilateral hand swelling (Chronic) Tobacco abuse (Chronic) Tobacco abuse counseling (Chronic) Surgical History: - - Patient has no history of significant surgical procedures. She is a G1, P1 Ab0 Allergies/Adverse Reactions: Allergies No Known Allergies Allergy (Verified 06/02/19 09:46) - Family History Paternal - - The patient's father is 88 years of age with a history of atrial fibrillation and abdominal aortic aneurysm. The patient's mother at the age of 90 from old age Smoking Status: Current every day smoker - Patient smokes 4 packs of cigarettes per week Tobacco Use: Cigarettes Review of Systems Constitutional: Denies: Chills, Fever, Weight Change Eyes: Denies: Pain, Vision Change HEENT: Denies: Difficulty Hearing, Difficulty Swallowing, Sinus Congestion Cardiovascular: Denies: Chest Pain, Palpitations Respiratory: Denies: Cough, Shortness of Breath Gastrointestinal: Denies: Diarrhea, Nausea, Vomiting Genitourinary: Denies: Dysuria, Hematuria Endocrine: Denies: Heat/ Cold Intolerance, Polydipsia, Polyuria Hematologic/ Lymphatic: Denies: Easy Bruising, Easy Bleeding - Physical Exam Vital Signs Temp Pulse Resp BP 98.2 F 87 16 147/69 H 07/07/19 09:06 07/07/19 09:06 07/07/19 09:06 07/07/19 09:06 General: Alert, Oriented x3, Cooperative, No apparent distress, Well developed, Well nourished HEENT: Atraumatic, PERRLA, EOMI, Normocephalic Oral: Moist Mucosa Neck: No JVD Lungs: Normal air movement Abdomen: Non-Distended Extremities: No clubbing, No cyanosis, No edema, No Calf Tenderness, - - Scattered varicosities are noted in the right lower extremity, of small and medium size. These are chronic in nature. The ulceration of the right medial malleolus remains completely healed and epithelialized. There is no significant swelling or edema at this time, having appeared to respond to to current measures, including elevation, graduated compression stockings, etc. Skin: No rashes, No breakdown Wound Measurements and Assessment WC - Nurse 1 - General Ulcer Measurement Start: 07/07/19 09:06 Freq: Status: Active Protocol: Activity Type Activity Date Activity User E-Sign Co-Sign Detail Recorded Client Recorded Date Recorded By Document 07/07/19 09:06 MW [id number] 07/07/19 09:10 MW 07/07/19 09:06 Wound Center Nurse 1 [Edema Assessment] -Lower Limb Edema Present No Musculoskeletal: No Muscle Wasting Neurological: Cranial nerves II-XII grossly intact, Neuro grossly intact Psych/Mental Status: Normal Affect, Appropriate, Alert and oriented to time, place, person, mood and affect Debridement Note The patient's right lower extremity venous ulcer is now completely healed and epithelialized. No debridement was completed today Assessment/Plan Active Problems Chronic venous insufficiency (Chronic) Venous stasis ulcer limited to breakdown of skin with varicose veins (Chronic) Venous hypertension, chronic, with ulcer (Chronic) Leg swelling (Chronic) Tobacco abuse (Chronic) Tobacco abuse counseling (Chronic) Assessment: This is a 53-year-old female presented with an ulceration near the right medial malleolus, which had been present for approximately 3 months. It appears likely, based upon the patient's history, and the location of her ulceration, this was due to chronic venous disease. The patient otherwise appears relatively healthy, but is noted to have a tobacco habit, for which she has been advised to quit. The patient has undergone a battery of diagnostic laboratory tests. Results have been reviewed, and are as follows: Sodium 143, potassium 4.5, chloride 107, BUN 15, creatinine 0.75, glucose 104, calcium 9.2, AST 16, ALT 21, alkaline phosphatase 53, total protein 7.5, albumin 4.1, serum prealbumin 25.9, white blood count 9.5, hemoglobin 14.0, hematocrit 41.8, platelets 427,000. A noninvasive lower extremity arterial study was performed yesterday, revealing no evidence of arterial occlusive disease in the lower extremities. Venous duplex examination was also performed, which revealed i ncompetence of the right great saphenous vein, the left great saphenous vein below the knee, and the left small saphenous vein. Plan: At this time, the patient's right lower extremity venous ulceration is completely healed and epithelialized. She is to be discharged, and will follow- up as needed in the event that her ulceration recurs. Conservative treatment measures are to be continued. These measures have been discussed with the patient thoroughly. She has been advised to elevate her lower extremities as much as possible. Elevation is to be to heart level, or higher. She is to continue sleeping on a flat surface at night. Prolonged idle sitting and standing has been discouraged. Activity has been encouraged. Compression is to be continued by means of knee-high graduated compression stockings of 20 to 30 mmHg compression. The patient has obtain the stockings, and is wearing them daily. Her weight appears to be optimal. She is to avoid idle sitting and standing. For the pain and discomfort she experiences in her lower extremities related to her venous disease, anti-inflammatory analgesics have been recommended. We have once again discussed the possible benefits of endovenous ablation of the right great saphenous vein, which is seen to be incompetent, and the likely cause of her right lower extremity venous ulceration. We have also discussed VenaSeal as a possible option. The indications and risks and the long-term benefits of endovenous ablation of the right great saphenous vein have been discussed with the patient thoroughly. She is to continue with conservative treatment measures, as outlined above, and will return to the office setting in several months for reassessment, and determination as to her desire to proceed with definitive intervention in the form of endovenous ablation of the right great saphenous vein. The patient is a smoker. Smoking has been discouraged. Patient has been advised of the adverse consequences related to tobacco use. Patient weighs 120 pounds. She stands 5 feet 4 inches tall. Her BMI is 20.5, which is normal. Influenza vaccine was not administered today.
== END 2019-08-01 23:59 ==
LOC: WC 08:39
PROVIDERS: Family Provider Family Medicine; PCP Family Medicine; Visit Provider Surgery
DX: Z09 Encounter for follow-up examination after completed treatment for conditions other than malignant neoplasm (principal); I87.2 Venous insufficiency (chronic) (peripheral); Z72.0 Tobacco use
CPT/HCPCS: 99212; G0463

== ENCOUNTER → 2025-03-03 | Outpatient (CLI) | payer SELFPAY ==
--- NOTE | 2025-03-03 14:10 | NEURO_ITS ---
NCS and/or EMG Patient Report Ordering Doctor: Nidhi Kent DATE OF SERVICE: 03/03/25 Carlota presents with a 2-month history of aching in both legs. She reports occasional numbness and a cold sensation in the feet. Electrodiagnostic findings: Right peroneal motor nerve demonstrates normal distal latency and amplitude when measured at the tibialis anterior. Left peroneal motor nerve measured at the EDB shows normal distal latency amplitude and conduction velocity. Tibial motor response within normal limits [place] aterally. Sensory responses are normal. Normal peroneal and tibial F-waves. Normal H?reflex bilaterally. Needle EMG testing was performed in the lower limbs. All muscles tested showed no evidence of denervation with normal motor unit action potentials. Electrodiagnostic impression: This is a normal electrodiagnostic study of the lower limbs. There is no electrodiagnostic evidence for peripheral neuropathy or lumbosacral radiculopathy. Multi Select Codes Neurology Neurology Interp Codes: 41058-59 Musc test done w/n test comp (interp) (2) and 79829-99 Nrv cndj test 9-10 studies (interp)
== END | disposition home or self-care (01) ==
LOC: PSN 12:25
PROVIDERS: PCP Family Medicine; Referring Provider Chiropractor; Visit Provider Chiropractor
DX: G62.9 Polyneuropathy, unspecified (principal)
CPT/HCPCS: 95886; 95912

== ENCOUNTER → 2025-07-15 | Outpatient (CLI) | payer BC, SELFPAY ==
--- OUTSIDE RECORDS SUMMARY | 2025-07-15 10:59 | XMS RPT_ITS | CCD ---
Author Organization [facility] Care Team Providers Care Stonework Tracer Name Role Phone Judith LUI, Dr. Vivar Primary Care Provider Yoli LUI, Dr. Terrell Attending Provider Yasmin Quiroz MD, Dr. Terrell Referring Provider Yasmin Quiroz MD, Dr. Terrell Other Provider Unavailable Callie LUI, Dr. Aaron Attending Provider [phone] Ghazala Wong Primary Care Unavailable Galen Ledesma Attending Unavailable Nidhi Kent Consulting Unavailable Yoli, Nidhi Referring Unavailable Ghazala Wong Primary Care Unavailable Nidhi Kent Attending Unavailable Nidhi Kent Referring Unavailable FREDDY CRAMER Attending Unavailable FREDDY CRAMER [facility] Care Unavailable FREDDY CRAMER Admitting Unavailable Problems Problem Classification Problem Date Documented Date Episodic/Chronic Administrative/social admission (1 source) Counseling procedure with explicit context; Translations: [Tobacco abuse counseling] 06-02-2019 Episodic Diabetes mellitus without complication (1 source) Type 2 diabetes mellitus without complications; Translations: [Type 2 diabetes mellitus without complications] Onset: 05-04-2025 Chronic Other connective tissue disease (1 source) Swelling of lower limb; Translations: [Other specified soft tissue disorders] 06-02-2019 Episodic Other connective tissue disease (1 source) Swelling of hand; Translations: [Other specified soft tissue disorders] 06-02-2019 Episodic Other diseases of veins and lymphatics (1 source) Chronic peripheral venous hypertension; Translations: [Chronic venous hypertension (idiopathic) with ulcer of unspecified lower extremity] 06-02-2019 Chronic Other diseases of veins and lymphatics (1 source) Peripheral venous insufficiency; Translations: [Venous insufficiency (chronic) (peripheral)] 06-02-2019 Episodic Other nervous system disorders (1 source) Unspecified mononeuropathy of bilateral lower limbs; Translations: [Unspecified mononeuropathy of bilateral lower limbs] Onset: 04-01-2025 Chronic Other nervous system disorders (1 source) Polyneuropathy, unspecified; Translations: [Polyneuropathy, unspecified] Onset: 04-01-2025 Chronic Other screening for suspected conditions (not mental disorders or infectious disease) (1 source) Encounter for screening for lipoid disorders; Translations: [Encounter for screening for lipoid disorders] Onset: 05-04-2025 Episodic Residual codes; unclassified (1 source) Tobacco user; Translations: [Tobacco use] 06-02-2019 Episodic Varicose veins of lower extremity (1 source) Skin ulcer; Translations: [Varicose veins of unspecified lower extremity with ulcer of unspecified site] 06-02-2019 Episodic Results Test Name Value Interpretation Reference Range Facil ity NCS and/or EMG Patienton NCS and/or EMG Patient [facility] Pulmonary Services/Neurology [address] [place] [address] MR#: [id number] Acct: [id number] Name: TODD BERNSTEIN Rep #: [id number] : 1965 59 From: Galen Ledesma MD Referring Dr: Nidhi Kent MD Status: REG CLI Location: PSN Date: 03/03/25 Sex: F C NCS and/or EMG Patient Report Ordering Doctor: Nidhi Kent DATE OF SERVICE: 03/03/25 Todd presents with a 2-month history of aching in both legs. She reports occasional numbness and a cold sensation in the feet. Electrodiagnostic findings: Right peroneal motor nerve demonstrates normal distal latency and amplitude when measured at the tibialis anterior. Left peroneal motor nerve measured at the EDB shows normal distal latency amplitude and conduction velocity. Tibial motor response within normal limits bilaterally. Sensory responses are normal. Normal peroneal and tibial F-waves. Normal H???reflex bilaterally. Needle EMG testing was performed in the lower limbs. All muscles tested showed no evidence of denervation with normal motor unit action potentials. Electrodiagnostic impression: This is a normal electrodiagnostic study of the lower limbs. There is no electrodiagnostic evidence for peripheral neuropathy or lumbosacral radiculopathy. Multi Select Codes Neurology Neurology Interp Codes: 55077-46 Musc test done w/n test comp (interp) (2) and 56446-21 [facility] cndj test 9-10 studies (interp) 03/03/25 1412 Date Galen Ledesma MD CC: Dr. Galen Ledesma MD; Dr. Ghazala oWng MD; Dr. Nidhi Kent MD Date Dictated: 03/03/25 141 Date Transcribed: 03/03/251409 Stallion Keeper: EDGAR Signed Normal [facility] Encounters Encounter Date Encounter Type Care Provider Facility Start: 05-04-2025 ambulatory [facility] Start: 03-03-[address] [facility] Facility:[facility] Start: 03-03-2025 Non-patient / Non-visit Dr. Galen zelaya MD -[facility] Start: 03-03-2025 End: 03-03-[address] Ghazala Wong MD Work Phone: [facility] Work Phone: Start: 03-03-2025 End: 03-03-[address] Nidhi Kent MD -Pulmonary Services/Neurology Work Phone: Start: 03-03-2025 End: 03-03-[address] [facility] Facility:[facility] Payers Date Payer Category Payer Self-pay 1965 Unknown [id number] Unknown [id number] Unknown [id number] Unknown [id number] Social History Date Type Detail Facility Start: 06-02-2019 Tobacco smoking stat us DEIS Smokes tobacco daily (finding) [facility] Start: 06-02-2019 Heavy Heavy [facility] Start: 06-02-2019 None None [facility] Start: 06-02-2019 Spouse/ Significant Other Spouse/ Significant Other [facility] Start: 08-02-2019 Cigarettes Cigarettes [facility] Start: 03-09-2025 Sex Female (finding) [facility] Start: 1965 Sex Assigned At Female [facility] Procedure note 03-03-2025 Note Date & Type Note Facility 03-03-2025 Procedure note [facility] Evaluation note Note Date & Type Note Facility Evaluation note No assessment information availa [facility] Work Phone: Reason for referral (narrative) Note Date & Type Note Facility Reason for referral (narrative) No reason for referral information available [facility] Work Phone: Chief Complaint and Reason for Visit Chief Complaint Admit Date BLE; NEUROPTHY March 03, 2025 12:2 1pm BLE; NEUROPTHY March 03, 2025 2:10 pm Summary Purpose Family History No Family History Records Found Advance Directives No Advanced Directives Records FoundNo Advanced Directives Records Found Additional Source Comments Care Teams (unrecognized sec tion and content) Team Status: Active Member Role Status Dates Dr. Ghazala Wong MD Primary Care Provider Active Team Status: Inactive Member Role Status Dates Dr. Ghazala Wong MD Primary Care Provider Active Start: March 03, 2025 End: March 03, 2025 Dr. Nidhi Kent MD Attending Provider Active S tart: March 03, 2025 End: March 03, 2025 Dr. Nidhi Kent MD Referring Provider Active S tart: March 03, 2025 End: March 03, 2025 Team Status: Active Member Role Status Dates Dr. Ghazala Wong MD Primary Care Provider Active Start: March 03, 2025 Dr. Nidhi Kent MD Referring Provider Active S tart: March 03, 2025 Dr. Nidhi Kent MD Other Provider Active Start : March 03, 2025 Dr. Galen Ledesma MD Attending Provider Active S tart: March 03, 2025 Goals (unrecognized section and content) Goals may be documented in a n alternate section INFORMATION SOURCE (unrecogn ized section and content) DATE CREATED AUTHOR 04/06/2025 [facility] DATE CREATED AUTHOR AUTHOR'S ORGANIZ ATION 05/05/2025 [facility] FOR RECORDS PERTAINING TO PATIENTS WHO ARE OR HAVE BEEN ENROLLED IN A CHEMICAL DEPENDENCY/SUBSTANCEABUSE PROGRAM, SOME INFORMATION MAY BE OMITTED. This clinical summary was aggregated from multiple sources. Caution should be exercised in using it in the provision of clinical care. This summary normalizes information from multiple sources, and as a consequence, information in this document may materially change the coding, format and clinical context of patient data. In addition, data may be omitted in some cases. CLINICAL DECISIONS SHOULD BE BASED ON THE PRIMARY CLINICAL RECORDS. [facility] [employer] [facility]. provides no warranty or guarantee of the accuracy or completeness of information in this document.
[2025-07-15 12:11] LABS: Hematocrit 38.9 % (37-47); Hemoglobin 13.0 g/dL (12.0-15.0); Immature Granulocytes Count 0.020 X10^3/uL (0.0-0.0); Mean Corp Hgb Conc 33.4 g/dL (32-36); Mean Corpuscular Volume 93.3 fL (81-99); Mean Platelet Vol. 10.3 fl (6.2-12.0); NRBC Flagged by Analyzer 0 % (0-5); Platelet Count 460 K/mm3 (150-450); RBC Distribution Width CV 12.4 % (11.6-14.6); RBC Distribution Width SD 43.0 fl (35.1-43.9); Red Blood Count 4.17 M/mm3 (4.2-5.4); White Blood Count 9.8 K/mm3 (4.4-11.0)
[2025-07-15 12:43] LABS: AST(SGOT) 20 U/L (<=31); Alanine Aminotransfer ALT/SGPT 17 U/L (<=34); Albumin, Serum 4.5 g/dL (3.4-4.8); Alkaline Phosphatase 59 U/L (35-104); Anion Gap 11 (5-15); BUN 13 mg/dL (4-19); BUN/Creat Ratio 25.4 RATIO (10-20); Calcium,Total 9.3 mg/dL (7.6-11.0); Carbon Dioxide 24.1 mmol/L (21.0-32.0); Chloride 98 mmol/L (98-108); Globulin 2.5 g/dL (2.2-4.2); Glucose 80 mg/dL (70-99); Potassium 4.3 mmol/L (3.3-5.1)
[2025-07-15 13:37] LABS: Cholesterol 150 mg/dL (<=200); Low Density Lipoprotein Calc. 69 mg/dL; Triglycerides 59 mg/dL; Very Low Density Lipoprotein 12 mg/dL (5-40); cholesterol:hdl ratio screen 2.17
[2025-07-15 13:41] LABS: Creatinine, Urine (random) 29.50 mg/dL (28.00-217.00); Microalbumin,Random Urine < 12.0 mg/L (<20 mg/L)
== END | disposition home or self-care (01) ==
PROVIDERS: PCP Family Medicine; Visit Provider Family Medicine
DX: E11.65 Type 2 diabetes mellitus with hyperglycemia (principal)
CPT/HCPCS: 36415; 80053; 80061; 82043; 82570; 83036; 84681; 85025